=== PATIENT | female | born 1960 | race Caucasian/White ===

== ENCOUNTER 2018-10-10 07:44 | Emergency (ER) | payer OTHER ==
[~2018-10-10] VITALS: Ht 162.6 cm; Wt 90.7 kg
[2018-10-10 07:48] VITALS: BP_SYST 162
[2018-10-10] MEDS ORDERED: NACL 0.9% 1,000 ML IV ONE (08:09)
[2018-10-10 08:58] VITALS: BP_SYST 162
[2018-10-10] MEDS ORDERED: SULF1TAB48 PO (18:31)
[2018-10-10] MEDS ORDERED: ROSU5TAB12 PO (18:31)
[2018-10-10] MEDS ORDERED: CARV10CP7 PO (18:31)
[2018-10-10] MEDS ORDERED: AZAT50TA24 PO (18:31)
[2018-10-10] MEDS ORDERED: ASPI-859 PO (18:31)
[2018-10-10] MEDS ORDERED: TRIA1CAP6 PO (18:31)
[2018-10-11] MEDS ORDERED: RIVA15TA PO (11:20)
[2018-10-11] MEDS ORDERED: RIVA20TA PO (11:20)
== END 2018-10-10 08:58 | disposition home or self-care (01) ==
LOC: SED 07:44
DX: R22.42 Localized swelling, mass and lump, left lower limb (principal); D86.9 Sarcoidosis, unspecified; J45.909 Unspecified asthma, uncomplicated; Z95.0 Presence of cardiac pacemaker; Z90.2 Acquired absence of lung [part of]
CPT/HCPCS: 93005; 99283; J7030

== ENCOUNTER 2018-10-10 14:29 | Inpatient (IN) | payer OTHER ==
[~2018-10-10] VITALS: Ht 162.6 cm; Wt 90.7 kg
[2018-10-10 15:20] VITALS: BP_SYST 165
[2018-10-10] MEDS ORDERED: NACL 0.9% 1,000 ML IV ONE (15:52)
[2018-10-10 16:17] LABS: BASOPHILS # (AUTO) 0.1 K/uL (0.0-0.2); EOSINOPHILS % (AUTO) 0.2 % (0.0-4.0); HEMATOCRIT 49.8 % (36-48); HEMOGLOBIN 16.5 g/dL (12.0-16.0); LYMPHOCYTES # (AUTO) 1.5 K/uL (1.0-5.5); LYMPHOCYTES % (AUTO) 13.5 % (20.5-51.5); MEAN CORPUSCULAR HEMOGLOBIN 28 pg (27-31); MEAN CORPUSCULAR HGB CONC 33 % (32-36); MEAN CORPUSCULAR VOLUME 85 fL (79.0-98.0); MONOCYTES # (AUTO) 0.5 K/uL (0.0-1.0); MONOCYTES % (AUTO) 4.5 % (1.7-9.3); NEUTROPHILS # (AUTO) 9.1 K/uL (1.8-7.7); NEUTROPHILS % (AUTO) 80.8 % (40.0-70.0); PLATELET COUNT (AUTO) 206 K/uL (130-430); RED BLOOD CELL COUNT(AUTO) 5.86 MIL/uL (4.2-6.2); RED CELL DISTRIBUTION WIDTH 13.7 % (9.0-15.0); WHITE BLOOD COUNT (AUTO) 11.2 K/uL (4.8-10.8)
[2018-10-10 16:36] LABS: CALCIUM 8.9 mg/dL (8.4-11.0); CREATININE 0.85 mg/dL (0.55-1.30); POTASSIUM 3.5 mmol/L (3.5-5.1)
[2018-10-10 16:40] LABS: ALBUMIN 3.7 g/dL (3.4-4.8); PROTHROMBIN TIME 10.1 SECS (9.5-12.5); TOTAL BILIRUBIN 0.6 mg/dL (0.0-1.0)
[2018-10-10 16:58] LABS: BILIRUBIN,URINE NEGATIVE (NEGATIVE); BLOOD, URINE NEGATIVE (NEGATIVE); CLARITY/URINE CLEAR (CLEAR); COLOR,URINE YELLOW (YELLOW); GLUCOSE,URINE NEGATIVE (NEGATIVE); KETONES,URINE NEGATIVE (NEGATIVE); LEUKOCYTE ESTERASE ,URINE NEGATIVE (NEGATIVE); NITRITE, URINE NEGATIVE (NEGATIVE); PROTEIN URINE NEGATIVE (NEGATIVE); UROBILINOGEN,URINE 0.2 (0.2-1.0)
[2018-10-10] MEDS ORDERED: MORPHINE 4 MG/ML INJ. SYRINGE IVP PRN (18:15)
[2018-10-10] MEDS ORDERED: ONDANSETRON HCL 4 MG/2 ML VIAL IVP PRN (18:15)
[2018-10-10] MEDS ORDERED: ALBUTEROL SULFATE 0.083% 2.5 MG/3 ML VIAL.NEB INH PRN (18:15)
[2018-10-10] MEDS ORDERED: ACETAMINOPHEN 325 MG TABLET PO PRN ×2 (18:15→19:00)
[2018-10-10] MEDS ORDERED: CARV10CP7 PO (18:31)
[2018-10-10] MEDS ORDERED: ROSU5TAB12 PO (18:31)
[2018-10-10] MEDS ORDERED: SULF1TAB48 PO (18:31)
[2018-10-10] MEDS ORDERED: TRIA1CAP6 PO (18:31)
[2018-10-10] MEDS ORDERED: ASPI-859 PO (18:31)
[2018-10-10] MEDS ORDERED: AZAT50TA24 PO (18:31)
[2018-10-10 19:28] VITALS: BP_SYST 168
[2018-10-10 20:00] VITALS: BP_SYST 160
[2018-10-10] MEDS: METOPROLOL TARTRATE 25 MG TABLET PO SCH (20:28)
[2018-10-10] MEDS: RIVAROXABAN 15 MG TABLET PO SCH (20:30)
[2018-10-10] MEDS ORDERED: NORMAL SALINE 5 ML DISP.SYRIN IVF SCH (22:00)
[2018-10-11 00:41] VITALS: BP_SYST 128
[2018-10-11 06:28] LABS: BASOPHILS % (AUTO) 0.6 % (0.0-2.0); EOSINOPHILS # (AUTO) 0.1 K/uL (0.0-0.4); EOSINOPHILS % (AUTO) 1.5 % (0.0-4.0); HEMOGLOBIN 15.4 g/dL (12.0-16.0); LYMPHOCYTES # (AUTO) 2.3 K/uL (1.0-5.5); LYMPHOCYTES % (AUTO) 29.6 % (20.5-51.5); MEAN CORPUSCULAR HEMOGLOBIN 28 pg (27-31); MEAN CORPUSCULAR HGB CONC 33 % (32-36); MEAN CORPUSCULAR VOLUME 86 fL (79.0-98.0); MONOCYTES # (AUTO) 0.6 K/uL (0.0-1.0); MONOCYTES % (AUTO) 8.4 % (1.7-9.3); NEUTROPHILS # (AUTO) 4.7 K/uL (1.8-7.7); NEUTROPHILS % (AUTO) 59.9 % (40.0-70.0); PLATELET COUNT (AUTO) 181 K/uL (130-430); RED CELL DISTRIBUTION WIDTH 13.6 % (9.0-15.0); WHITE BLOOD COUNT (AUTO) 7.7 K/uL (4.8-10.8)
[2018-10-11 06:52] LABS: CALCIUM 8.4 mg/dL (8.4-11.0); CREATININE 0.5 mg/dL (0.55-1.30); POTASSIUM 3.4 mmol/L (3.5-5.1)
[2018-10-11 07:08] LABS: THYROID STIMULATING HORMONE 0.03 uIu/mL (0.34-4.82); TOTAL BILIRUBIN 0.8 mg/dL (0.0-1.0)
[2018-10-11 08:12] VITALS: BP_SYST 148
[2018-10-11] MEDS ORDERED: POTASSIUM CHLORIDE 20 MEQ TAB.PRT.SR PO ONE (08:15)
[2018-10-11] MEDS: METOPROLOL TARTRATE 25 MG TABLET PO SCH (08:17)
[2018-10-11] MEDS: RIVAROXABAN 15 MG TABLET PO SCH (08:18)
[2018-10-11] MEDS ORDERED: RIVA20TA PO (11:20)
[2018-10-11] MEDS ORDERED: RIVA15TA PO (11:20)
[2018-10-11 11:27] VITALS: BP_SYST 133
[2018-10-11 11:36] VITALS: BP_SYST 133
[2018-10-13 01:08] LABS: T4 (THYROXINE) 7.8 ug/dL (4.5-12.0)
[2018-10-16 09:47] LABS: ANTITHROMBIN III ACTIVITY 139 % (75-135)
== END 2018-10-11 11:50 | disposition home or self-care (01) | DRG 301 ==
LOC: SED 14:29 → STU 18:02
PROVIDERS: ADMIT Internal Medicine; ATTEND Internal Medicine
DX: I82.432 Acute embolism and thrombosis of left popliteal vein (principal); I10 Essential (primary) hypertension; E78.5 Hyperlipidemia, unspecified; E66.9 Obesity, unspecified; E05.90 Thyrotoxicosis, unspecified without thyrotoxic crisis or storm; J45.909 Unspecified asthma, uncomplicated; Z95.0 Presence of cardiac pacemaker; Z68.34 Body mass index [BMI] 34.0-34.9, adult; Z80.0 Family history of malignant neoplasm of digestive organs; Z88.1 Allergy status to other antibiotic agents; Z79.899 Other long term (current) drug therapy
CPT/HCPCS: 36415; 71045; 80053; 81003; 81403; 81407; 81479; 82150-TC; 82378; 82550-TC; 83690-TC; 83880; 84311; 84436; 84443-TC; 84480; 84484; 85025; 85300; 85379; 85610-TC; 85730-TC; 86147; 93971; 96360; 99285; G0378

== ENCOUNTER 2018-12-09 03:15 | Emergency (ER) | payer OTHER ==
[~2018-12-09] VITALS: Ht 162.6 cm; Wt 89.8 kg
[~2018-12-09 03:15] MED LIST: ASPI-859 PO; AZAT50TA24 PO; CARV10CP7 PO; RIVA15TA PO; RIVA20TA PO; ROSU5TAB12 PO; SULF1TAB48 PO; TRIA1CAP6 PO
[2018-12-09 03:40] VITALS: BP_SYST 162
[2018-12-09] MEDS ORDERED: CARV6.2554 PO (03:50)
--- NOTE | 2018-12-09 04:15 | NUR ---
Patient to ER bed 1 to gown for evaluation. Side rails up.
--- NOTE | 2018-12-09 04:30 | NUR ---
Pt resting in bed comfortably. Pt is a0x4. Pt is ambulatory. Pt c/o right inner groin/leg pain x1day. Pt denies n/v, diarrhea. No other complaints at this time. No complaints of pain this time. Pt denies tenderness to area. Vital signs stable. No sob noted. No distress noted. No other needs at this time. Will continue to monitor pt.
--- NOTE | 2018-12-09 04:30 | NUR ---
ER Dr. Garcia at bedside examining patient.
--- NOTE | 2018-12-09 04:45 | NUR ---
# 20 gauge angiocath placed to Left AC. Use of asceptic technique. Opsite placed over site. Blood return noted. Blood for lab drawn from site. Flushed with 10 cc of normal saline. No evidence of infiltration noted. Patient tolerated well.
[2018-12-09 04:56] LABS: BASOPHILS % (AUTO) 0.5 % (0.0-2.0); EOSINOPHILS # (AUTO) 0.1 K/uL (0.0-0.4); EOSINOPHILS % (AUTO) 1.3 % (0.0-4.0); HEMATOCRIT 45.5 % (36-48); HEMOGLOBIN 15.2 g/dL (12.0-16.0); LYMPHOCYTES # (AUTO) 1.9 K/uL (1.0-5.5); LYMPHOCYTES % (AUTO) 28.1 % (20.5-51.5); MEAN CORPUSCULAR HEMOGLOBIN 29 pg (27-31); MEAN CORPUSCULAR HGB CONC 33 % (32-36); MEAN CORPUSCULAR VOLUME 86 fL (79.0-98.0); MONOCYTES # (AUTO) 0.6 K/uL (0.0-1.0); MONOCYTES % (AUTO) 9.5 % (1.7-9.3); NEUTROPHILS # (AUTO) 4.1 K/uL (1.8-7.7); NEUTROPHILS % (AUTO) 60.6 % (40.0-70.0); PLATELET COUNT (AUTO) 178 K/uL (130-430); RED BLOOD CELL COUNT(AUTO) 5.29 MIL/uL (4.2-6.2); RED CELL DISTRIBUTION WIDTH 14.7 % (9.0-15.0); WHITE BLOOD COUNT (AUTO) 6.7 K/uL (4.8-10.8)
--- NOTE | 2018-12-09 05:00 | NUR ---
Pt taken for ultrasound via wheelchair
[2018-12-09 05:10] LABS: CREATININE 0.74 mg/dL (0.55-1.30); POTASSIUM 3.4 mmol/L (3.5-5.1)
[2018-12-09 05:13] LABS: INR 1.2 (0.8-1.2); PROTHROMBIN TIME 12.4 SECS (9.5-12.5)
[2018-12-09 05:15] LABS: ALBUMIN 3.4 g/dL (3.4-4.8); TOTAL BILIRUBIN 0.4 mg/dL (0.0-1.0)
--- NOTE | 2018-12-09 05:22 | NUR ---
Pt brought back to ED via wheelchair. Pt restingin bed. No sob noted. No distress noted. Pt denies pain at this time. Will continue to monitor pt.
[2018-12-09 05:40] VITALS: BP_SYST 162
== END 2018-12-09 05:40 | disposition home or self-care (01) ==
LOC: SED 03:15
DX: R10.31 Right lower quadrant pain (principal); I10 Essential (primary) hypertension; J45.909 Unspecified asthma, uncomplicated; E78.5 Hyperlipidemia, unspecified; Z86.718 Personal history of other venous thrombosis and embolism; Z95.0 Presence of cardiac pacemaker; Z88.1 Allergy status to other antibiotic agents; Z79.82 Long term (current) use of aspirin; Z79.899 Other long term (current) drug therapy
CPT/HCPCS: 36415; 80053; 85025; 85379; 85610-TC; 85730-TC; 93971; 99284